=== PATIENT | male | born 1995 | race Caucasian/White ===

== ENCOUNTER 2018-08-28 12:04 | Emergency (ER) | payer SELFPAY ==
[~2018-08-28] VITALS: Ht 180.3 cm; Wt 56.7 kg
--- OUTSIDE RECORDS SUMMARY | 2018-08-28 12:09 | XMS REPORT | Continuity of Care Document ---
Demographics Preferred Language Unknown Marital Status Unknown Denominational Affiliation Unknown Race Unknown Ethnic Group Unknown Author Organization Unknown Address Unknown Allergies There is no data. Medications There is no data. Problems Date Dx Coded Attending Type Code Diagnosis Diagnosed By 05/24/2010 V70.3 SPORTS/SCHOOL EXAM Procedures There is no data. Results Test Result Range LIPID PANEL - 06/29/18 09:37 CHOLESTEROL, TOTAL 161 mg/dL <200 HDL CHOLESTEROL 59 mg/dL >40 TRIGLYCERIDES 49 mg/dL <150 LDL-CHOLESTEROL 88 mg/dL (calc) NRG CHOL/HDLC RATIO 2.7 (calc) <5.0 NON HDL CHOLESTEROL 102 mg/dL (calc) <130 GLUCOSE, SERUM - 06/29/18 09:37 GLUCOSE 90 mg/dL 65-99 Encounters ACCT No. Visit Date/Time Discharge Status Pt. Type Provider Facility Loc./Unit Complaint [id number] 05/24/2010 10:24:00 05/24/2010 23:59:59 CLS Outpatient [id number] 06/29/2018 10:00:00 06/29/2018 23:59:59 [id number] 06/29/2018 10:00:00 Document Registration
[2018-08-28 12:39] LABS: BASOPHILS % (AUTO) 0 % (0-10); EOSINOPHILS # (AUTO) 0.1 10^3/uL (0.0-0.3); EOSINOPHILS % (AUTO) 2 % (0-10); HEMATOCRIT 45 % (40-54); HEMOGLOBIN 15.9 G/DL (13.3-17.7); LYMPHOCYTES % (AUTO) 30 % (12-44); MEAN CORPUSCULAR HEMOGLOBIN 33 PG (25-34); MEAN CORPUSCULAR HGB CONC 36 G/DL (32-36); MEAN CORPUSCULAR VOLUME 91 FL (80-99); MEAN PLATELET VOLUME 9.9 FL (7.4-10.4); MONOCYTES # (AUTO) 0.5 X 10^3 (0.0-1.0); MONOCYTES % (AUTO) 8 % (0-12); NEUTROPHILS # (AUTO) 4.1 X 10^3 (1.8-7.8); NEUTROPHILS % (AUTO) 61 % (42-75); PLATELET COUNT 194 10^3/uL (130-400); RED CELL DISTRIBUTION WIDTH 11.8 % (10.0-14.5); WHITE BLOOD COUNT 6.7 10^3/uL (4.3-11.0)
[2018-08-28] MEDS ORDERED: NS IV 1000 ML 1,000 ML IV SCH (12:45)
[2018-08-28 12:51] LABS: ALANINE AMINOTRANSFERASE 11 U/L (0-55); ALBUMIN 4.7 GM/DL (3.2-4.5); ALKALINE PHOSPHATASE 62 U/L (40-136); BILIRUBIN,TOTAL 1.5 MG/DL (0.1-1.0); BUN/CREATININE RATIO 13; CALCIUM 9.5 MG/DL (8.5-10.1); CARBON DIOXIDE 26 MMOL/L (21-32); CHLORIDE 105 MMOL/L (98-107); CREATININE SERUM 0.92 MG/DL (0.60-1.30); GFR ESTIMATED > 60; GLUCOSE 93 MG/DL (70-105); POTASSIUM 3.8 MMOL/L (3.6-5.0); SODIUM 140 MMOL/L (135-145); TOTAL PROTEIN 7.3 GM/DL (6.4-8.2)
--- NOTE | 2018-08-28 13:18 | Diagnostic Imaging Report ---
EXAM: CHEST 1 VIEW, AP/PA ONLY. INDICATION: Chest pain. COMPARISON: None. FINDINGS: Normal heart size and pulmonary vascularity. No dense consolidation, pleural effusion or pneumothorax. No acute osseous findings. IMPRESSION: Negative chest. Dictated by: Dictated on workstation # [id number]
[2018-08-28] MEDS ORDERED: KETOROLAC 30 MG/ML VIAL IVP ONE (13:30)
--- NOTE | 2018-08-28 14:20 | ED Chest Pain ---
General Chief Complaint: Chest Pain Stated Complaint: HEADACHE - CHEST PAIN - VOMITING Nursing Triage Note: PT AMB TO RM 4 WITH COMPLAINT OF CHEST PAIN FOR THE LAST TWO DAYS. STATES PAIN IS STABBING. STATES HE HAS BEEN TIRED AND HAD A COUGH. STATES HE THOUGHT SYMPTOMS WERE ALLERIGES. PT STATES THIS MORNING AFTER EATING CEREAL, HE BECAME NAUSEOUS AND VOMITED. STATES HAS A HEADACHE. Nursing Sepsis Screen: No Definite Risk Source: patient Exam Limitations: no limitations History of Present Illness Date Seen by Provider: Aug 28, 2018 Time Seen by Provider: 12:32 Initial Comments 22-year-old male who presents to the emergency room with complaints of chest wall pain for the past 2 days. He reports that he started a new job that is physically demanding believes that he pulled muscles in his chest. He's also had intermittent cough for the past week. He denies shortness of breath. Allergies and Home Medications Allergies Coded Allergies: No Known Drug Allergies (Unverified , 08/28/18) Home Medications No Active Prescriptions or Reported Meds Patient Home Medication List Home Medication List Reviewed: Yes Review of Systems Review of Systems Constitutional: see HPI; No chills, No fever Cardiovascular: See HPI, Chest Pain Gastrointestinal: See HPI, Vomiting All Other Systems Reviewed Negative Unless Noted: Yes Past Tmsdfwx-Wubmrd-Jgpgtg Hx Past Med/Social Hx: Reviewed Nursing Past Med/Soc Hx Patient Social History Alcohol Use: Denies Use Recreational Drug Use: No Smoking Status: Current Everyday Smoker Type Used: Cigarettes Recent Foreign Travel: No Contact w/Someone Who Travel: No Recent Infectious Disease Expo: No Recent Hopitalizations: No Immunizations Up To Date Tetanus Booster (TDap): Unknown PED Vaccines UTD: Yes Seasonal Allergies Seasonal Allergies: No Past Medical History Surgeries: No Respiratory: No Cardiac: No Neurological: No Genitourinary: No Gastrointestinal: No Musculoskeletal: No Endocrine: No HEENT: No Cancer: No Psychosocial: No Integumentary: No Blood Disorders: No Family Medical History Reviewed Nursing Family Hx Physical Exam Vital Signs Vital Signs - First Documented 08/28/18 12:11 Temp 97.0 Pulse 68 Resp 17 B/P (MAP) 136/85 (102) Pulse Ox 100 O2 Delivery Room Air Capillary Refill : Less Than 3 Seconds Height, Weight, BMI Height: 5'11.00" Weight: 125lbs. oz. 56.425868vi; BMI Method:Stated General Appearance: No Apparent Distress, WD/WN Respiratory: Lungs Clear, Normal Breath Sounds, No Accessory Muscle Use, No Respiratory Distress, Other (chest wall tenderness) Cardiovascular: Regular Rate, Rhythm, No Edema, No Gallop, No JVD, No Murmur, Normal Peripheral Pulses Extremity: Normal Capillary Refill Neurologic/Psychiatric: Alert, Oriented x3, Normal Mood/Affect Skin: Normal Color, Warm/Dry Progress/Results/Core Measures Results/Orders Lab Results Laboratory Tests Test 08/28/18 12:14 Range/Units White Blood Count 6.7 4.3-11.0 10^3/uL Red Blood Count 4.89 4.35-5.85 10^6/uL Hemoglobin 15.9 13.3-17.7 G/DL Hematocrit 45 40-54 % Mean Corpuscular Volume 91 80-99 FL Mean Corpuscular Hemoglobin 33 25-34 PG Mean Corpuscular Hemoglobin Concent 36 32-36 G/DL Red Cell Distribution Width 11.8 10.0-14.5 % Platelet Count 194 130-400 10^3/uL Mean Platelet Volume 9.9 7.4-10.4 FL Neutrophils (%) (Auto) 61 42-75 % Lymphocytes (%) (Auto) 30 12-44 % Monocytes (%) (Auto) 8 0-12 % Eosinophils (%) (Auto) 2 0-10 % Basophils (%) (Auto) 0 0-10 % Neutrophils # (Auto) 4.1 1.8-7.8 X 10^3 Lymphocytes # (Auto) 2.0 1.0-4.0 X 10^3 Monocytes # (Auto) 0.5 0.0-1.0 X 10^3 Eosinophils # (Auto) 0.1 0.0-0.3 10^3/uL Basophils # (Auto) 0.0 0.0-0.1 10^3/uL Sodium Level 140 135-145 MMOL/L Potassium Level 3.8 3.6-5.0 MMOL/L Chloride Level 105 98-107 MMOL/L Carbon Dioxide Level 26 21-32 MMOL/L Anion Gap 9 5-14 MMOL/L Blood Urea Nitrogen 12 7-18 MG/DL Creatinine 0.92 0.60-1.30 MG/DL Estimat Glomerular Filtration Rate > 60 BUN/Creatinine Ratio 13 Glucose Level 93 70-105 MG/DL Calcium Level 9.5 8.5-10.1 MG/DL Corrected Calcium 8.5-10.1 MG/DL Total Bilirubin 1.5 H 0.1-1.0 MG/DL Aspartate Amino Transf (AST/SGOT) 17 5-34 U/L Alanine Aminotransferase (ALT/SGPT) 11 0-55 U/L Alkaline Phosphatase 62 40-136 U/L Troponin I < 0.028 <0.028 NG/ML Total Protein 7.3 6.4-8.2 GM/DL Albumin 4.7 H 3.2-4.5 GM/DL My Orders Orders - JOSE RAO Troponin I (08/28/18 12:31) Chest 1 View, Ap/Pa Only (08/28/18 12:31) Ekg Tracing (08/28/18 12:31) Ed Iv/Invasive Line Start (08/28/18 12:31) Monitor-Rhythm Ecg Trace Only (08/28/18 12:31) Cbc With Automated Diff (08/28/18 12:31) Comprehensive Metabolic Panel (08/28/18 12:31) Ns Iv 1000 Ml (Sodium Chloride 0.9%) (08/28/18 12:45) Ketorolac Injection (Toradol Injection) (08/28/18 13:30) Medications Given in ED Vital Signs/I&O 08/28/18 08/28/18 08/28/18 12:11 12:11 15:11 Temp 97.0 Pulse 68 52 Resp 17 16 B/P (MAP) 136/85 (102) 97/52 (67) Pulse Ox 100 100 O2 Delivery Room Air Room Air Room Air Blood Pressure Mean: 102 Departure Impression Primary Impression: Chest wall pain Disposition: 01 HOME, SELF-CARE Condition: Stable/Unchanged Departure-Patient Inst. Decision time for Depature: 14:19 Referrals: NO,LOCAL PHYSICIAN (PCP/Family) Primary Care Physician Patient Instructions: Pleuritic Chest Pain (DC) Add. Discharge Instructions: Tylenol and Motrin as directed by the bottle for pain relief. Ice to the sore areas at 20 minute intervals. Care provider within 1 week for a recheck. Return back to the emergency room for worsening symptoms or concerns as needed. All discharge instructions reviewed with patient and/or family. Voiced understanding. Scripts No Active Prescriptions or Reported Meds JOSE RAO Aug 28, 2018 14:20
[2018-08-28 15:11] VITALS: BP 97/52
== END 2018-08-28 15:11 | disposition home or self-care (01) ==
LOC: ER 12:06
DX: R07.89 Other chest pain (principal); F17.210 Nicotine dependence, cigarettes, uncomplicated
CPT/HCPCS: 36415; 71045; 80053; 84484; 85025; 93005; 93041; 96361; 96374

== ENCOUNTER → 2021-03-07 | Outpatient (REF) ==
--- NOTE | 2021-03-07 11:00 | Diagnostic Imaging Report ---
INDICATION: Right elbow pain. TIME OF EXAM: 10:57 AM FINDINGS: 3 views of the right elbow were obtained. Alignment is normal. Joint spaces are well-maintained. No fracture, dislocation or effusion is identified. IMPRESSION: No acute bony abnormality is detected. Dictated by: Dictated on workstation # [id number]
== END ==
LOC: OCC 10:39
PROVIDERS: ATTEND Family Medicine
DX: M25.521 Pain in right elbow (principal)
CPT/HCPCS: 73080

== ENCOUNTER 2022-09-28 09:03 | Emergency (ER) | payer BC ==
[~2022-09-28] VITALS: Ht 180 cm; Wt 61.2 kg
--- NOTE | 2022-09-28 09:47 | ED Abdominal Pain ---
General Chief Complaint: Abdominal/GI Problems Stated Complaint: ABD PAIN | LT LOWER ABD/GROIN AREA Nursing Triage Note: PATIENT REPORTS TO ED FOR LEFT LOWER ABD. PAIN AND LEFT GROIN PAIN. PER PATIENT HE BELIEVES IT MIGHT BE A HERNIA. DENIES KNOWN INJURY. PATIENT AMB. TO ROOM 03 WITH FEMALE. GUARDING NOTED ON LEFT LOWER ABD. PATIENT IS ALERT AND ORIENTED TO PERSON, TIME, PLACE, AND SITUATION. Source of Information: Patient, Family Exam Limitations: No Limitations NPO Since: 629 (CAMILO SHEPHERD) History of Present Illness Date Seen by Provider: Sep 28, 2022 Time Seen by Provider: 09:30 Initial Comments Our patient is a 26 yo M who presents to the emergency department with pain in his left lower abdominal quadrant. The pain is described as constant and achy, with radiation into the scrotum. His symptoms began on Wednesday with no inciting incident and he initially just thought that he had a stomach ache, as it was relegated to his abdomen. Since onset his pain has continued to worsen and now radiates into his groin. He has tried to ice the area with some relief. Any movement, walking, or palpation worsen his pain. He denies nausea, vomiting, fever, recent illnesses, chills, diaphoresis, urinary burning or frequency, constipation or diarrhea. He notes no previous occurences. He has not eaten since around 1900 yesterday and has not had anything to drink since around 06 this morning. Timing/Duration: 3-4 Days Severity/Quality: Aching Location: LLQ Radiation: Groin Activities at Onset: None Modifying Factors: Worsens With Exercise; Improves With Lying down; Worsens With Movement, Worsens With Palpation; Improves With Resting Associated Symptoms: No Back Pain, No Chest Pain, No Diaphoresis, No Fever/Chills, No Headache, No Nausea/Vomiting, No Shortness of Air (CAMILO SHEPHERD) Allergies and Home Medications Allergies Coded Allergies: No Known Drug Allergies (Unverified , 08/28/18) Patient Home Medication List Home Medication List Reviewed: Yes (JIMMY VENTURA MD) Levofloxacin (Levofloxacin) 500 Mg Tablet, 500 MG PO DAILY Prescribed by: JIMMY FALLON on 09/28/22 1318 Tramadol HCl (Tramadol HCl) 50 Mg Tablet, 50 MG PO Q6H PRN for PAIN BREAKTROUGH Prescribed by: JIMMY FALLON on 09/28/22 2877 Review of Systems Review of Systems Constitutional: No chills, No diaphoresis, No fever EENTM: No Symptoms Reported; No Throat Pain Respiratory: Denies Cough, Denies Shortness of Air Cardiovascular: No Symptoms Reported; Denies Chest Pain, Denies Lightheadedness, Denies Palpitations Gastrointestinal: See HPI; Denies Abdomen Distended; Abdominal Pain; Denies Constipated, Denies Diarrhea, Denies Nausea, Denies Vomiting Genitourinary: No Symptoms Reported; Denies Burning, Denies Frequency, Denies Pain Musculoskeletal: no symptoms reported Skin: no symptoms reported Psychiatric/Neurological: No Symptoms Reported; Denies Headache, Denies Numbness Endocrine: No Symptoms Reported; Denies Excessive Sweating Hematologic/Lymphatic: No Symptoms Reported (CAMILO SHEPHERD) Past Qdcouvb-Dzofnf-Ozqiwx Hx Patient Social History Tobacco Use?: Yes Tobacco type used: Cigarettes Smoking Status: Current Everyday Smoker (7 cigarettes a day) Use of E-Cig and/or Vaping dev: No Substance use?: No Alcohol Use?: Yes Alcohol type: Beer Alcohol Frequency: Once in a while Pt feels they are or have been: No (CAMILO SHEPHERD) Immunizations Up To Date Tetanus Booster (TDap): Unknown PED Vaccines UTD: Yes Influenza Vaccine Up-to-Date: No; Not Current (CAMILO SHEPHERD) Seasonal Allergies Seasonal Allergies: No (CAMILO SHEPHERD) Past Medical History Surgery/Hospitalization HX: DENIES MED. HX AND SURG. HX. Surgeries: No Respiratory: No Cardiac: No Neurological: No Genitourinary: No Gastrointestinal: No Musculoskeletal: No Endocrine: No HEENT: No Cancer: No Psychosocial: No Integumentary: No Blood Disorders: No (CAMILO SHEPHERD) Family Medical History No Pertinent Family Hx (CAMILO SHEPHERD) Physical Exam Vital Signs Vital Signs - First Documented 09/28/22 09:14 Temp 36.6 Pulse 75 Resp 18 B/P (MAP) 146/95 (112) Pulse Ox 99 O2 Delivery Room Air (JIMMY VENTURA MD) Vital Signs Capillary Refill : Less Than 3 Seconds (CAMILO SHEPHERD) Height/Weight/BMI Height: 5'11.00" Weight: 125lbs. oz. [id number]; 18.00 BMI Method:Stated General Appearance: WD/WN, mild distress HEENT: PERRL/EOMI Neck: non-tender, supple, normal inspection Respiratory: chest non-tender, lungs clear, normal breath sounds, no respiratory distress, no accessory muscle use Cardiovascular: normal peripheral pulses, regular rate, rhythm, no edema, no gallop, no JVD, no murmur Peripheral Pulses: 2+ Radial Pulses (R), 2+ Radial Pulses (L) Gastrointestinal: normal bowel sounds, no organomegaly, guarding, rebound (LLQ), tenderness (LLQ) Rectal: deferred Genital/Rectal: normal genital exam Extremities: non-tender, normal inspection, no pedal edema Male: normal genitalia, no hernia; No erythema; inguinal tenderness, testicular tenderness Neurologic/Psychiatric: alert, normal mood/affect, oriented x 3 Skin: normal color, warm/dry Lymphatic: inguinal node tender (R), inguinal node tender (L) (CAMILO SHEPHERD) Progress/Results/Core Measures Results/Orders Lab Results Laboratory Tests Test 09/28/22 09:07 09/28/22 10:10 Range/Units Lab Scanned Report Referred Lab Report [id number] Urine Color YELLOW Urine Clarity CLEAR Urine pH 6.5 5-9 Urine Specific [place] 1.020 1.016-1.022 Urine Protein NEGATIVE NEGATIVE Urine Glucose (UA) NEGATIVE NEGATIVE Urine Ketones NEGATIVE NEGATIVE Urine Nitrite NEGATIVE NEGATIVE Urine Bilirubin NEGATIVE NEGATIVE Urine Urobilinogen 0.2 < = 1.0 MG/DL Urine Leukocyte Esterase NEGATIVE NEGATIVE Urine RBC (Auto) NEGATIVE NEGATIVE Urine RBC NONE /HPF Urine WBC NONE /HPF Urine Squamous Epithelial Cells NONE /HPF Urine Crystals NONE /LPF Urine Bacteria NEGATIVE /HPF Urine Casts NONE /LPF Urine Mucus NEGATIVE /LPF Urine Culture Indicated NO Urine Chlamydia trachomatis RNA Not Detected Not Detected Urine Neisseria gonorrhoeae RNA Not Detected Not Detected (JIMMY VENTURA MD) Micro Results Microbiology 09/28/22 Urine Culture - Final, Complete NO GROWTH (JIMMY VENTURA MD) My Orders Orders - JIMMY VENTURA MD Ua Culture If Indicated (09/28/22 10:05) Ketorolac Injection (Toradol Injection) (09/28/22 10:45) Us Scrotum (Testicle) [id number] (09/28/22 10:31) Fentanyl Inj (Sublimaze Injection) (09/28/22 12:15) Ct Abd/Pelvis Wo(Kidney Stone) (09/28/22 12:11) Chlamydia Trachomatis Urine (09/28/22 13:05) Neis Jon Dna Urine Test (09/28/22 13:05) Urine Culture (09/28/22 13:05) Ceftriaxone Iv/Im (Rocephin Iv/Im) (09/28/22 13:06) (JIMMY VENTURA MD) Medications Given in ED (JMIMY VENTURA MD) Vital Signs/I&O 09/28/22 09/28/22 09:14 14:11 Temp 36.6 36.6 Pulse 75 65 Resp 18 16 B/P (MAP) 146/95 (112) 108/76 Pulse Ox 99 96 O2 Delivery Room Air Room Air (JIMMY VENTURA MD) Blood Pressure Mean: 112 Progress Progress Note : Progress Note Patient was seen by medical student at 0930. Report was received and UA was ordered at 1005. Patient was interviewed and examined by me personally along with MS4. Toradol was ordered for pain. Patient was fount to have TTP of the left testicle as well as the LLQ. There was shotty tender inguinal nodes bilaterally. There is no evidence of hernia on exam. UA revealed no pyuria. A scrotal ultrasound was obtained to rule out torsion. Validation Specialist reported no evidence of torsion, orchitis, or epididymitis. Patient had insufficient relief from Toradol. Fentanyl was added. Patient was reassessed. We discussed options for empiric treatment of his symptoms and possible occult infection versus further evaluation with CT imaging to evaluate for other pathologies such as ureteral stone. Risks and benefits were reviewed. Patient elected to proceed with CT scan. CT revealed no evidence of ureteral stone or other pathologies. Empiric treatment for occult epididymitis or other urinary tract infection was provided with Rocephin in the ER and a prescription for Levaquin. A prescription for Ultram was provided for breakthrough pain. See discharge instructions for further discussion. (JIMMY VENTURA MD) Departure Impression Primary Impression: Scrotal pain Additional Impression: Left lower quadrant pain Disposition: 01 HOME, SELF-CARE Condition: Stable Departure-Patient Inst. Decision time for Depature: 13:13 (JIMMY VENTURA MD) Referrals: NO,LOCAL PHYSICIAN (PCP/Family) Primary Care Physician Patient Instructions: Abdominal Pain, Adult ED, Epididymitis Add. Discharge Instructions: The exact cause of your pain in the abdomen and scrotum is uncertain. It is possible that you have infection of the epididymis (epididymitis). Continue taking antibiotics until otherwise directed. You should establish with a primary care provider so that you have someone to follow-up with in instances such as this. Please call and establish with a [facility] care provider as soon as possible. For primary pain control you may take ibuprofen up to 600 mg every 6 hours as needed. You may add Tylenol (acetaminophen) up to 1000 mg every 6 hours as needed. For pain not controlled by these oyzj-qev-xhlublz medications, you may take Ultram (tramadol) as prescribed. Tramadol may cause drowsiness, so you should not drive, operate machinery, or make important decisions while on tramadol. Tramadol may also cause constipation. You may wish to use a stool softener such as Colace while taking tramadol to prevent constipation. Return to care if your symptoms have not resolved near the end of your antibiotic treatment course. Return to the ER if you have worsening symptoms or develop new symptoms such as fever despite following these instructions. All discharge instructions reviewed with patient and/or family. Voiced understanding. Scripts Tramadol HCl (Tramadol HCl) 50 Mg Tablet 50 MG PO Q6H PRN for PAIN BREAKTROUGH, #10 TAB Prov: JIMMY VENTURA MD 09/28/22 Levofloxacin (Levofloxacin) 500 Mg Tablet 500 MG PO DAILY, #10 TAB Prov: JIMMY VENTURA MD 09/28/22 Work/School Note: Work Release Form Date Seen in the Emergency Department: Sep 28, 2022 Return to Work: Sep 29, 2022 Restrictions: No Restrictions Medical Student Attestation and Attending Note: I have personally interviewed and examined this patient along with IFEOMA Petersen. I have reviewed student documentation including history, physical, and assessments. I agree with the documentation except where otherwise noted. Exam: General: Alert, oriented, no acute distress, well developed, thin HEENT: Normocephalic and atraumatic Heart: Regular rate and rhythm without murmur Lungs: Clear to auscultation bilaterally with normal effort Abdomen: Soft, TTP in the LLQ, nondistended, normal bowel sounds, shotty tender inguinal LAD bilat, no hernia or jam palpable Genital: Scrotum normal in appearance and palpation. Tenderness to direct palpation of the left testicle. No hernia in the inguinal canal with valsalva. Neuropsych: Alert, oriented, no focal deficits Skin: Warm and dry without rashes (JIMMY VENTURA MD) CAMILO SHEPHERD Sep 28, 2022 09:47 JIMMY VENTURA MD Sep 28, 2022 13:18
[2022-09-28 10:22] LABS: BILIRUBIN,URINE NEGATIVE (NEGATIVE); CLARITY,URINE CLEAR; COLOR,URINE YELLOW; GLUCOSE, URINE (UA) NEGATIVE (NEGATIVE); KETONES,URINE NEGATIVE (NEGATIVE); LEUKOCYTE ESTERASE ,URINE NEGATIVE (NEGATIVE); NITRITE,URINE NEGATIVE (NEGATIVE); PH,URINE 6.5 (5-9); PROTEIN,URINE NEGATIVE (NEGATIVE)
[2022-09-28 10:25] LABS: BACTERIA,URINE NEGATIVE /HPF
[2022-09-28] MEDS ORDERED: KETOROLAC 30 MG/ML VIAL IVP ONE (10:45)
--- NOTE | 2022-09-28 11:27 | Diagnostic Imaging Report ---
PROCEDURE: US Scrotum w/ Duplex TECHNIQUE: Multiple real-time bernal images were obtained of the scrotum in various projections bilaterally. Color Doppler images were also obtained. INDICATION: Left-sided scrotal pain. COMPARISON: None. FINDINGS: The testicles are normal in size, shape and echogenicity. The right testis measures 4.5 x 1.9 x 2.9 cm. The left testis measures 4.4 x 1.8 x 2.8 cm. There is normal color flow Doppler signal of both testicles. No focal testicular mass is seen on either side. The right and left epididymides are unremarkable. There is no sonographic evidence of epididymitis. IMPRESSION: 1. Normal testicular sonogram. No evidence of mass or torsion. Dictated by: Dictated on workstation # [id number]
[2022-09-28] MEDS ORDERED: fentaNYL INJ 100 MCG/2 ML AMP IVP ONE (12:15)
--- NOTE | 2022-09-28 12:57 | Diagnostic Imaging Report ---
PROCEDURE: CT urinary tract, rule out kidney stone. TECHNIQUE: Multiple contiguous axial images were obtained through the abdomen and pelvis without the use of intravenous contrast. Auto Exposure Controls were utilized during the CT exam to meet ALARA standards for radiation dose reduction. INDICATION: Left lower quadrant abdominal pain. COMPARISON: None. FINDINGS: Included portions of the lung bases are clear. CT ABDOMEN: Normal appendix is identified. Small bowel loops are nondilated. The kidneys, adrenal glands, spleen, pancreas, and liver have an unremarkable noncontrast CT appearance. There is no loculated fluid collection, free fluid, or free air within the abdomen. No abnormal mesenteric or retroperitoneal adenopathy is seen. Osseous structures show no acute abnormalities. CT PELVIS: Urinary bladder is unopacified. No calculi are seen within the urinary bladder. There is no loculated fluid collection, free fluid, or free air within the pelvis. No abnormal adenopathy is seen. Osseous structures show no acute abnormalities. IMPRESSION: 1. No acute abnormality is seen within the abdomen or pelvis. Dictated by: Dictated on workstation # [id number]
[2022-09-28] MEDS ORDERED: cefTRIAXone IV/IM 1,000 MG in NS (IVPB) 50 ML IV STA (13:06)
[2022-09-28] MEDS ORDERED: LEVO-55 PO (13:18)
[2022-09-28] MEDS ORDERED: TRAM50TA3 PO (13:58)
[2022-09-28 14:11] VITALS: BP 108/76
== END 2022-09-28 14:11 | disposition home or self-care (01) ==
LOC: EDUNIT# 09:03 → ER 09:07
DX: R10.32 Left lower quadrant pain (principal); N50.82 Scrotal pain; F17.210 Nicotine dependence, cigarettes, uncomplicated
CPT/HCPCS: 36415; 74176; 76870; 81000; 87088; 87491; 87591